=== PATIENT | female | born 1980 | race African-American/Black ===

== ENCOUNTER 2018-05-07 10:49 | Emergency (ER) | payer OTHER ==
[~2018-05-07] VITALS: Ht 149.9 cm; Wt 57.1 kg
[~2018-05-07 10:49] MED LIST: ACETAMINOPHEN325 M1 PO; ACYCLOVIR 800800 M1 PO; ALPRAZOLAM; AZITHROMYCIN 2250 MG PO; BACTRIM DS TAB1 EACH PO; BACTROBAN15 GM TP; BENADRYL25 MG PO; CLEOCIN HCL150 MG PO; DIFLUCAN150 MG PO; DULCOLAX5 MG PO; FLINTSTONES T100 MCG; IBUPROFEN 600600 M1 PO; KEFLEX500 MG PO; MULTIVITAMINS; NAPROSYN375 MG PO; NORCO 5-325 TA1 EACH PO; PHENERGAN; PHENERGAN 25 MG25 M1 PO; PHENERGAN 25 MG25 MG PO; PHENERGAN25 MG RE; PHENTERMINE H37.5 MG; PREDNISONE; PREDNISONE50 MG PO; PRENATAL PO; PROTONIX40 MG PO; REGLAN 10 MG TA10 MG PO; VENTOLIN HFA INH8 GM INH; VITAMIN B-12100 MC1; VITAMIN B6; VITAMIN C120 GM; ZANTAC 150MG T150 M1 PO; ZOFRAN 4 MG ORAL4 M1 DIS; ZOFRAN4 MG; ZOFRAN4 MG PO
[2018-05-07 11:25] LABS: ABSOLUTE NEUTROPHILS 14.7 thou/uL (1.4-8.2); BASOPHILS 0.4 % (0.0-2.0); EOSINOPHILS 0.4 % (0.0-3.0); HEMATOCRIT 40.5 % (37.0-47.0); HEMOGLOBIN 13.4 gm/dL (12.0-15.0); LYMPHOCYTES 9.4 % (24.0-44.0); MCH 28.9 pg (26.0-34.0); MCHC 33.1 g/dL (28.0-37.0); MCV 87.1 fL (80.0-100.0); PLATELET COUNT 245 thou/uL (150-400); POLYS 83.8 % (36.0-66.0); RBC 4.65 mil/uL (4.20-5.00); RDW 14.4 % (10.5-14.5); WBC 17.6 thou/uL (4.0-11.0)
[2018-05-07 11:32] LABS: CALCIUM 9.5 mg/dL (8.5-10.1); CREATININE 0.9 mg/dL (0.6-1.0); POTASSIUM 3.9 mmol/L (3.5-5.1)
[2018-05-07 11:38] LABS: ALBUMIN 3.9 g/dL (3.4-5.0); DIRECT BILIRUBIN 0.2 mg/dL (<0.1-0.3)
[2018-05-07 11:57] LABS: URINE BILIRUBIN NEGATIVE (Negative); URINE BLOOD 2+ (Negative); URINE CLARITY SL CLOUDY; URINE COLOR YELLOW; URINE GLUCOSE-RANDOM* NEGATIVE (Negative); URINE KETONES 2+ (Negative); URINE LEUKOCYTES-REFLEX NEGATIVE (Negative); URINE NITRITE-REFLEX NEGATIVE (Negative); URINE PROTEIN (DIPSTICK) NEGATIVE (Negative); URINE SPECIFIC GRAVITY 1.025 (1.005-1.035); URINE UROBILINOGEN 0.2 E.U./dl (0.2-1.0)
[2018-05-07 12:15] LABS: SQUAMOUS >10 Many /LPF (0-3)
[2018-05-07 12:16] LABS: BACTERIA-REFLEX 1-9 Few /HPF (None Seen); CASTS None Seen /LPF (None Seen); CRYSTALS None Seen /LPF (None Seen); MUCUS >6 Heavy strn/LPF (None Seen); URINE RBC 3-10 Few /HPF (0-2); URINE WBC-REFLEX 0-5 Rare /HPF (0-5)
[2018-05-07] MEDS ORDERED: ZOFRAN4 MG PO (12:30)
[2018-05-07 13:16] VITALS: BP 114/78
== END 2018-05-07 13:17 | disposition home or self-care (01) ==
LOC: ER 10:49
PROVIDERS: Emergency Medicine
DX: R19.7 Diarrhea, unspecified (principal); R11.2 Nausea with vomiting, unspecified; J45.909 Unspecified asthma, uncomplicated; Z90.49 Acquired absence of other specified parts of digestive tract; F17.210 Nicotine dependence, cigarettes, uncomplicated; Z88.0 Allergy status to penicillin